=== PATIENT | female | born 1995 | race Caucasian/White ===

== ENCOUNTER 2018-12-21 16:13 | Inpatient (IN) | payer BC, SELFPAY ==
[2018-12-21 16:32] VITALS: BMI 44.3
[2018-12-21] MEDS: Lactated Ringers 1,000 ML 50 ML IV ×2 (16:55→23:10)
[2018-12-21] MEDS: 0.9% Normal Saline 100 ML IV.SOLN. INTRA-UTER (17:20)
--- NOTE | 2018-12-21 17:22 | HP.PCM_ITS ---
History Date of Admission: 12/21/18 Final ALLYSON: 12/15/18 Gestational age: 40 Weeks and 6 Days History of this : This is a 23 year-old, G [], P [], at 40 weeks gestational age. Allergies No Known Allergies Allergy (Verified 12/21/18 16:42) Home Medications: Home Medications Ergocalciferol [Vitamin D] 50,000 unit PO Q7D 12/21/18 Vits [Prenatabs FA] 1 tab PO DAILY 12/21/18 Smoking Status: Never smoker Alcohol: None Heart Tracin with mod variablity, accels TOCO Analysis: irregular History Past Pregnancies: Past Pregnancies Delivery Date Name GA/Weeks Outcome Route Weight Infant Gender Labor Length Anesthesia Delivery Location Provider FOB Labs: See [facility] H&P Physical Exam General: Alert, Oriented x3 Abdomen: Soft, Non Tender, Non-Distended, Gravid Extremities:: No tenderness/swelling Neurological: Cranial nerves II-XII grossly intact [employer]: Normal external genitalia Estimated gestational size: Appropriate for gestational size Presentation: Cephalic Cervix Dilation (cm): 1.5 Station: -3 Effacement (%): 80 Assessment/Plan This is a 23 year-old female at 41 weeks gestational age. Admit to L&D Induction - intracervical quintanilla placed. Plan to start pitocin. GBS negative. Pain - epidural as desired. EFW less than 4500g, patient with adequate pelvis. Routine care.
[2018-12-21 17:54] LABS: Hematocrit 41.5 % (37-47); Hemoglobin 13.5 g/dL (12.0-15.0); Mean Corp Hgb Conc 32.5 g/dL (32-36); Mean Corpuscular Hgb 29.6 pg (27.0-32.0); Mean Platelet Vol. 11.3 fl (6.2-12.0); Platelet Count 253 K/mm3 (150-450); RBC Distribution Width CV 14.4 % (11.6-14.6); RBC Distribution Width SD 47.8 fl (35.1-43.9); Red Blood Count 4.56 M/mm3 (4.2-5.4)
[2018-12-21] MEDS: miSOPROStol 25 MCG TABLET VAGINAL (18:34)
[2018-12-21] MEDS: Oxytocin 30 units/NS 500 ml 30 UNITS/500 ML IV.SOLN IV (22:40)
[2018-12-21] MEDS: fentaNYL-bupivacaine (epidural) 100 ML BAG EPIDURAL (23:38)
[2018-12-22] VITALS (13 sets, daily range): BP systolic 110–159; BP diastolic 40–90; PULSE 97–119; RESP 18–26; TEMP 36.3–37.6; O2SAT 98–100
[2018-12-22] MEDS: Lactated Ringers 1,000 ML 50 ML IV ×3 (02:16→11:47)
[2018-12-22] MEDS: Acetaminophen 325 MG Tablet PO ×2 (02:30→10:44)
[2018-12-22] MEDS: fentaNYL-bupivacaine (epidural) 100 ML BAG EPIDURAL ×3 (03:57→13:35)
--- NOTE | 2018-12-22 07:01 | PCM.PN.BLA ---
Progress Note S: Patient comfortable with epidural O: cvx - 8/90/-2 fhts 125 with mod variability, accels, early appearing decels tocos Q2-3 min A&P: continue pitocin
[2018-12-22] MEDS: Ondansetron 4 MG/2 ML Vial IV (11:47)
--- NOTE | 2018-12-22 13:21 | PCM.PN.BLA ---
Progress Note Patient seen at bedside. Patient is comfortable with epidural in place. Patient is pushing good maternal effort. Fetus feels like it is in the OP position. But noted. 0 station. We will continue to push at this time. We will try hands and knees to get the baby to rotate. Estimated weight was in the 86 percentile at last ultrasound. Approximately 8.5 pound estimation by clinical exam.
[2018-12-22] MEDS: CHLORHEXIDINE GLUC 2% CLOTH 1 EACH TOWELETTE TOPICAL (15:50)
[2018-12-22] MEDS: Sodium Citrate/Citric Acid 30 ML UDC PO (15:55)
--- NOTE | 2018-12-22 16:08 | PCM.PN.BLA ---
Progress Note She is seen at bedside. Examined. Vaginal exam patient is fully dilated 0 to +1 station with At noted. Has been pushing on and off for approximately 4 hours. Without good descent of the head. Fetus feels like it is in the OP position. Recommendation at this time for primary section. Patient was counseled on the risks of a section including but not limited to infection, bleeding, injury to pelvic structures including bladder, bowel, vessels. Patient was also instructed that we may need a assistance from push up from below to disengage the head. Patient wishes to proceed at this time. Our team was notified.
--- NOTE | 2018-12-22 17:48 | OP.PCM_ITS ---
Delivery Classification: HANNAH Final ALLYSON: 12/15/18 Gestational age: 41 Weeks and 0 Days Indications for : Arrrest of Descent Description of Procedure: After informed consent was obtained the patient was taken the operating room She was then placed in the supine position. She was prepped and draped in the normal sterile fashion. Anesthesia was found to be adequate. At this time a Pfannenstiel skin incision was made with a knife was carried down to the underlying layer of the fascia. The fascial incision was then extended laterally using curved Davis scissor. Tensions was then turned to the superior aspect of the fascial edge was grasped with 2 straight Matthew clamps tented up and the rectus muscle dissected off sharply using curved Davis scissor. Attention was then turned to the inferior aspect where again Iselin clamps were placed in the rectus muscles were tented up and the fascia was dissected off sharply using the curved Davis scissor. Rectus muscles were then in the midline bluntly and peritoneum was entered bluntly. Gentle opposing traction was placed. At this time the vesicouterine peritoneum was identified. Scalpel was used to make a uterine incision in a low transverse fashion. The uterus was then entered bluntly gentle opposing traction was placed to extend this incision. thick Meconium appreciated. 's head was disengaged with help from push-up from below. Once symptoms head was disengaged it was brought to uterine incision however started to rotate and traction was lost. At this time then decision was made to deliver the breech. The but was rotated down and delivered atraumatically followed by the rest of the 's body. Cord was clamped and cut infant was handed to the waiting nursery team. The Placenta was removed from the uterus. The uterus was then removed from the abdominal cavity. The uterus was cleared of all clots and debris using a lap. The waist of the uterine incision showed small bilateral extensions to the lower uterine segment. These were incorporated into the uterine incision as they were minimal. There is also a defect that wrapped around to the right side of the posterior aspect of the uterus. Bleeding was noted there. At this time the uterine incision was reapproximated using #1 Vicryl in a running locked fashion. By second layer for hemostasis using #1 Vicryl. At this time then the posterior uterus was evaluated bleeding was noted at this time multiple [id number] sutures were placed avoiding the uterine arteries. Uterus was placed back in the intra-abdominal cavity and bleeding was still appreciated to the uterus was removed. Assistance was called Dr. Joseph entered the operating room at this time. Agreed that bleeding was coming from the posterior aspect of the uterus running suture was placed good hemostasis was appreciated. There is no active bleeding at this time. Hemostasis was appreciated. Posterior cul-de-sac was then cleared of all clots and debris. Uterus was placed back in the abdominal cavity. Gutters were cleared of all clots and debris. Uterine incision was reevaluated and noted to be of good hemostasis. The extension on the right lower segment was evaluated good hemostasis there was mild oozing from sheering defect-fibrillar and Lesli was placed on that defect as well as on the uterine incision Lesli was placed.. At this time the peritoneum and muscle were grasped with Kellys reapproximated using #2 Vicryl suture in a running fashion. Fascia was then reapproximated using #1 Vicryl in a running fashion. Subcu layer was reapproximated with #2 0 plain gut suture in a running fashion. Subcu layer was closed using 4-0 vicryl on a Prosper needle in a subcu fashion. Dry sterile dressing was applied. Instrument lap needle count correct ?2. Anticipated normal postoperative course. Due to the defect that went from anterior to posterior on the uterus I do not recommend that the patient have a trial of labor for her next . I rec ommend a repeat section. Amniotic Membrane Rupture Type: Spontaneous Amniotic Fluid Description: Thick meconium Placenta Disposition: [facility] Drain: [place] to straight drain Fluids Replaced: 2400 Cord Entanglement: None Cord Vessel Description: 3 Vessels Esitmated Blood Loss (ml): 1200 Infant Gender: Male (1 minute): 6 (5 minute): 9 Delayed cord clamping: No Pre-op Antibiotic Given: - - Ancef 3 g Pt instructed on risks of surgery: Bleeding, Anesthesia Risks, Infection, Injury to surrounding structure(s) including bowel and bladder Complications: - - Hemorrhage due to bleeding from uterine defect, uterine atony. Received Methergine and tranexamic intraop - Admit VTE Documentation VTE Present on Admission: Yes VTE Mechan Device Prophylaxis: SCD's VTE Pharm Prophylaxis ordered?: Yes
[2018-12-22] MEDS: Methylergonovine 0.2 MG/ML Ampul IM (17:54)
[2018-12-22] MEDS: Oxytocin 30 units/NS 500 ml 30 UNITS/500 ML IV.SOLN 167 UNITS IV (18:45)
[2018-12-22] MEDS: Lactated Ringers 1,000 ML 100 ML IV (20:11)
[2018-12-22 21:44] LABS: Basophil# 0.04 X10^3/uL; Basophil% 0.2 % (0-1); Eosinophils% 0.4 % (0-5); Hematocrit 37.5 % (37-47); Hemoglobin 12.3 g/dL (12.0-15.0); Lymphocyte # 0.65 X10^3/ul (4.0); Lymphocyte % 2.7 % (19-41); Mean Corp Hgb Conc 32.8 g/dL (32-36); Mean Corpuscular Hgb 29.6 pg (27.0-32.0); Mean Corpuscular Volume 90.1 fL (81-99); Mean Platelet Vol. 11.7 fl (6.2-12.0); Monocyte# 1.89 X10^3/uL; Monocyte% 7.8 % (0-10); NRBC Flagged by Analyzer 0 % (0-5); Neutrophil # 21.41 X10^3/uL (2.7-7.7); Neutrophil % 88.2 % (47-70); POSITIVE DIFFERENTIAL YES; POSITIVE MORPHOLOGY YES; Platelet Count 239 K/mm3 (150-450); RBC Distribution Width CV 14.7 % (11.6-14.6); RBC Distribution Width SD 48.2 fl (35.1-43.9); Red Blood Count 4.16 M/mm3 (4.2-5.4); White Blood Count 24.3 K/mm3 (4.4-11.0)
[2018-12-22 21:47] LABS: Differential Indicated SCAN CRITERIA MET
[2018-12-22] MEDS: Acetaminophen 500 MG Tablet 1000 MG PO (21:49)
[2018-12-23] VITALS (11 sets, daily range): BP systolic 94–114; BP diastolic 50–70; PULSE 84–114; RESP 16–18; TEMP 36.2–36.9; O2SAT 97–100
[2018-12-23] MEDS: Cefazolin 2 GM in 0.9% Normal Saline 100 ML IV (00:05)
[2018-12-23] MEDS: Ketorolac 30 MG/ML Syringe IV ×4 (00:46→17:32)
[2018-12-23] MEDS: Enoxaparin 40 MG/0.4 ML Syringe SC (05:49)
[2018-12-23 05:59] LABS: Hematocrit 29.5 % (37-47); Hemoglobin 9.8 g/dL (12.0-15.0); Mean Corp Hgb Conc 33.2 g/dL (32-36); Mean Corpuscular Volume 90.2 fL (81-99); Mean Platelet Vol. 11.2 fl (6.2-12.0); Platelet Count 202 K/mm3 (150-450); RBC Distribution Width CV 14.8 % (11.6-14.6); RBC Distribution Width SD 48.6 fl (35.1-43.9); Red Blood Count 3.27 M/mm3 (4.2-5.4); White Blood Count 19.9 K/mm3 (4.4-11.0)
[2018-12-23] MEDS: Lactated Ringers 1,000 ML 100 ML IV (07:51)
--- NOTE | 2018-12-23 08:51 | PN.OBGYN_ITS ---
Subjective: Patient seen at bedside doing well. Patient reports good pain control. Patient denies any chest pain, shortness of breath, dizziness, palpitations. Patient reports mild lochia. Breast-feeding. - Physical Exam General: Alert, Oriented x3 Abdomen: Soft, Non-Distended, - - Fundus firm. Incision dressing dry and intact Extremities: No Calf Tenderness Vital Signs Temp Pulse Resp BP Pulse Ox 98.2 F 84 16 108/54 L 99 12/23/18 05:56 12/23/18 05:56 12/23/18 05:56 12/23/18 05:56 12/23/18 05:56 Oxygen Delivery Method Blow-by Weight: 110 kg Body Mass Index (BMI) 44.3 Intake and Output for Last 24 Hours 12/21/18 12/22/18 12/23/18 23:59 23:59 23:59 Intake Total 74448 / 89558 1500 / 1500 Output Total 1600 / 1600 800 / 800 Balance 9331 / 9331 700 / 700 Laboratory Tests Past 24 Hrs 12/21/18 12/22/18 12/23/18 16:55 18:45 05:40 WBC 24.3 H 19.9 H RBC 4.16 L 3.27 L Hgb 12.3 9.8 L Hct 37.5 29.5 L MCV 90.1 90.2 MCH 29.6 30.0 MCHC 32.8 33.2 RDW Std Deviation 48.2 H 48.6 H RDW Coeff of Mu 14.7 H 14.8 H Plt Count 239 202 MPV 11.7 11.2 Immature Gran % (Auto) 0.700 Neut % (Auto) 88.2 H Lymph % (Auto) 2.7 L Burke % (Auto) 7.8 Eos % (Auto) 0.4 Baso % (Auto) 0.2 Absolute Neuts (auto) Not Reportable Absolute Nucleated RBC 0.00 Nucleated RBC % 0 Differential Comment Crossmatch See Detail Medical Necessity - Tobacco Use Smoking Status: Never smoker Assessment/Plan Post op day #1 status post primary section for arrest of descent. Immediate hemorrhage approximately 1200 cc of blood loss. I reviewed personally with the patient that I do not feel she is a good candidate for her next . Recommended a repeat section for any further deliveries. Routine care Pain management DC [place] Ambulation Monitor vital signs Repeat CBC in a.m.
--- NOTE | 2018-12-23 09:10 | NURSING ---
Indwelling quintanilla catheter present. WNL.
[2018-12-23] MEDS: Acetaminophen 500 MG Tablet 1000 MG PO ×2 (09:14→17:31)
--- NOTE | 2018-12-23 09:23 | NURSING ---
Patient up and ambulated to chair with minimal assistance. Sitting up in chair. Tolerated well. Incentive spirometry encouraged. Denies further needs at this time. Family at bedside.
[2018-12-23] MEDS: 0.9% Saline Lock 10 ML Syringe IV (11:59)
--- NOTE | 2018-12-23 18:13 | NURSING ---
Patient reports that she was just up and moving.
[2018-12-24] MEDS: 0.9% Saline Lock 10 ML Syringe IV ×4 (00:28→18:06)
[2018-12-24] MEDS: Ketorolac 30 MG/ML Syringe IV ×4 (00:28→18:06)
[2018-12-24 02:00] VITALS: BP 111/62; PULSE 104; RESP 20; TEMP 35.8; O2SAT 98
[2018-12-24 05:15] LABS: Hematocrit 25.6 % (37-47); Hemoglobin 8.3 g/dL (12.0-15.0); Mean Corp Hgb Conc 32.4 g/dL (32-36); Mean Corpuscular Hgb 29.4 pg (27.0-32.0); Mean Corpuscular Volume 90.8 fL (81-99); Mean Platelet Vol. 10.4 fl (6.2-12.0); Platelet Count 183 K/mm3 (150-450); RBC Distribution Width CV 14.8 % (11.6-14.6); RBC Distribution Width SD 49.4 fl (35.1-43.9); Red Blood Count 2.82 M/mm3 (4.2-5.4); White Blood Count 17.5 K/mm3 (4.4-11.0)
[2018-12-24] MEDS: Enoxaparin 40 MG/0.4 ML Syringe SC (06:09)
--- NOTE | 2018-12-24 07:33 | DCINST_ITS ---
Discharge Diet: No Restrictions Discharge Activity: Return to Normal Activity, May Not Drive - for 2 weeks, May not drive while taking narcotic pain medications., May Shower, May Take a Tub Bath - in 7 days. May resume sexual activity in: 4-6 weeks Lifting Restrictions: 20 pounds Additional Activity Instructions:: Nothing in the vagina for 4-6 weeks. You may return to work/school in 6 weeks. Call your doctor if your incision/area has: Continuous Slow Oozing, Sudden Increased Bleeding, Increased Pain/ Swelling, Increased Redness, Foul Smelling Discharge Call your doctor if you observe: Fever of 101 or Higher, Using more than one pad per hour - for 2 hours Suture Line Care: Avoid Pulling/Pushing, Avoid Pinching/Bending Cleanse incision/area with: Keep Dressing Clean & Dry Additional Instructions: If you experience any of the following, contact your healthcare provider. * Bleeding that soaks a pad every hour for 2 hours * Fever 100.4 or higher * Unrelieved incision or abdominal pain * Swelling, redness, discharge or bleeding from your incision or episiotomy site * Your incision begins to separate * Problems urinating (including inability to urinate or burning while urinating). * Visual changes * Severe headache * Flu-like symptoms * Pain or redness in one of both of your breasts * Pain, warmth, tenderness or swelling in your legs, especially the calf area * Frequent nausea and vomiting * Symptoms of depression or anxiety If you experience any of the following, call 911 or go to the nearest Emergency Room. * Chest pain * Problems breathing * Seizure activity * Partial or complete paralysis of a body part, slurred speech, weakness or drooping of the face, or a sudden inability to walk or hold your balance Allergies/Adverse Reactions: Allergies No Known Allergies Allergy (Verified 12/21/18 16:42) Medications to take at Discharge Vits [Prenatabs FA ] 1 tab PO DAILY 12/21/18 Acetaminophen [Tylenol Extra Strength] 1,000 mg PO Q8 #40 tab 12/24/18 Ibuprofen [Motrin] 800 mg PO TID PRN PRN #60 tab 12/24/18 Oxycodone [Oxyir] 5 mg PO Q4H PRN PRN 7 Days #28 tablet 12/24/18 The following prescriptions were given: Ibuprofen [Motrin] 800 mg PO TID PRN PRN #60 tab PRN Reason: Pain [facility] Oxycodone [Oxyir] 5 mg PO Q4H PRN PRN 7 Days #28 tablet PRN Reason: Severe Pain (6-03/10) Transmission Status: [facility] by [facility] Acetaminophen [Tylenol Extra Strength] 1,000 mg PO Q8 #40 tab Transmission [facility] Follow-Up: Call to make an appointment with your doctor for an incision check in 1-2 weeks. You will also need a 6 week post- follow up appointment. Test results from this visit will be discussed in further detail at your follow- up appointment, if applicable. Please Follow Up With: Betsy Molina MD - Call to make an appointment for an incision check in 1-2 [phone] When: You will need a post check in 6 weeks. Primary Care Physician: David Bui MD [Primary Care Provider] -
--- NOTE | 2018-12-24 07:34 | DS.PCM_ITS ---
Discharge Date and Diagnosis Date of Admission: 12/21/18 Date of Discharge: 12/24/18 Hospital Course and Treatment Consultations 12/21/18 17:27 Consult: Anesthesia Routine Comment: Reason For Exam: LABOR Operations: - - Primary low transverse section via Pfannenstiel skin incision with an attention of the incision down the right cervix and a defect in the posterior uterine wall. Clinically would not recommend TOLAC Procedures: None Summary of Care Provided: The patient is a 23-year-old female who had a complete and pushing . The head was very engaged. There was a cervical extension on the right side with a significant amount of bleeding. She also had proximally a 2 cm defect in the left posterior wall of the uterus. These were oversewn. Patient tolerated her acute blood loss anemia which was appropriate for blood loss during the surgery very well. By postoperative day #2 she is ambulating, urinating tolerating regular diet and ready for discharge. She was given routine instructions and prescription she is to follow-up in our office in 1-2 in 6 weeks or as needed. Because of the extensive nature of her cervical lacerations, Dr. Garcia and Dr. Joseph clinically recommended that the patient is not a vaginal after candidate. [] - Physical Exam Vital Signs Temp Pulse Resp BP Pulse Ox 96.4 F L 104 H 20 H 111/62 98 12/24/18 02:00 12/24/18 02:00 12/24/18 02:00 12/24/18 02:00 12/24/18 02:00 Oxygen Delivery Method Room Air Weight: 110 kg Body Mass Index (BMI) 44.3 Intake and Output for Last 24 Hours 12/22/18 12/23/18 12/24/18 23:59 23:59 23:59 Intake Total 54539 / 39005 2775 / 2775 Output Total 1600 / 1600 3000 / 3000 Balance 9331 / 9331 -225 / -225 Laboratory Tests Past 24 Hrs 12/24/18 05:05 WBC 17.5 H RBC 2.82 L Hgb 8.3 L Hct 25.6 L MCV 90.8 MCH 29.4 MCHC 32.4 RDW Std Deviation 49.4 H RDW Coeff of Mu 14.8 H Plt Count 183 MPV 10.4 Discharge Diet: No Restrictions Discharge Activity: Return to Normal Activity, May Not Drive - for 2 weeks, May not drive while taking narcotic pain medications., May Shower, May Take a Tub Bath - in 7 days. May resume sexual activity in: 4-6 weeks Additional Activity Instructions:: Nothing in the vagina for 4-6 weeks. You may return to work/school in 6 weeks. Call your doctor if your incision/area has: Continuous Slow Oozing, Sudden Increased Bleeding, Increased Pain/ Swelling, Increased Redness, Foul Smelling Discharge Call your doctor if you observe: Fever of 101 or Higher, Using more than one pad per hour - for 2 hours Suture Line Care: Avoid Pulling/Pushing, Avoid Pinching/Bending Cleanse incision/area with: Keep Dressing Clean & Dry Home Medications: Medications to take at Discharge Vits [Prenatabs FA ] 1 tab PO DAILY 12/21/18 Acetaminophen [Tylenol Extra Strength] 1,000 mg PO Q8 #40 tab 12/24/18 Ibuprofen [Motrin] 800 mg PO TID PRN PRN #60 tab 12/24/18 Oxycodone [Oxyir] 5 mg PO Q4H PRN PRN 7 Days #28 tablet 12/24/18 Following Prescrptions Were Given to Patient: Ibuprofen [Motrin] 800 mg PO TID PRN PRN #60 tab PRN Reason: Pain Transmission Status: Pending to [facility] Oxycodone [Oxyir] 5 mg PO Q4H PRN PRN 7 Days #28 tablet PRN Reason: Severe Pain (6-10/10) Transmission Status: Received by [facility] Acetaminophen [Tylenol Extra Strength] 1,000 mg PO Q8 #40 tab Transmission Status: Pending to [facility] Primary Care Physician: David Bui MD [Primary Care Provider] - Please Follow Up With: Betsy Molina MD - Call to make an appointment for an incision check in 1-2 [phone] When: You will need a post check in 6 weeks. Medical Necessity - Tobacco Use Smoking Status: Never smoker Meaningful Use Info Meaningful Use Diagnoses (Choose all that apply): None applicable
--- NOTE | 2018-12-24 07:41 | PCM.PN.OB ---
Subjective: No complaints - Physical Exam General: Alert, Oriented x3 Abdomen: Soft, Non Tender, Non-Distended - ff mid & below umb; inc - bandage c/d/i Extremities: No Calf Tenderness Neurological: Cranial nerves II-XII grossly intact Vital Signs Temp Pulse Resp BP Pulse Ox 96.4 F L 104 H 20 H 111/62 98 12/24/18 02:00 12/24/18 02:00 12/24/18 02:00 12/24/18 02:00 12/24/18 02:00 Oxygen Delivery Method Room Air Weight: 242 lb 8.136 oz Body Mass Index (BMI) 44.3 Intake and Output for Last 24 Hours 12/22/18 12/23/18 12/24/18 23:59 23:59 23:59 Intake Total 36357 / 64281 2775 / 2775 Output Total 1600 / 1600 3000 / 3000 Balance 9331 / 9331 -225 / -225 Laboratory Tests Past 24 Hrs 12/24/18 05:05 WBC 17.5 H RBC 2.82 L Hgb 8.3 L Hct 25.6 L MCV 90.8 MCH 29.4 MCHC 32.4 RDW Std Deviation 49.4 H RDW Coeff of Mu 14.8 H Plt Count 183 MPV 10.4 Medical Necessity - Tobacco Use Smoking Status: Never smoker Assessment/Plan POD #2 Heme - anemia - will d/c home on iron. Attribute mild tachycardia to anemia. D/c home later today.
[2018-12-24 08:43] VITALS: BP 106/62; PULSE 106; RESP 16; TEMP 36.4; O2SAT 100
[2018-12-24] MEDS: Acetaminophen 500 MG Tablet 1000 MG PO (09:08)
[2018-12-24 13:54] VITALS: BP 117/77; PULSE 99; RESP 18; TEMP 36.6; O2SAT 98
--- NOTE | 2018-12-24 14:14 | NURSING ---
Lanolin and gel pads given.
[2018-12-24] MEDS: Senna/Docusate Sodium 1 Tablet PO (18:05)
[2018-12-24 19:45] VITALS: BP 118/66; PULSE 109; RESP 18; TEMP 36.6; O2SAT 100
[2018-12-25] MEDS: Ibuprofen 600 MG Tablet PO ×3 (01:29→14:21)
[2018-12-25 01:30] VITALS: BP 117/72; PULSE 107; RESP 18; TEMP 37.1
[2018-12-25] MEDS: Acetaminophen 500 MG Tablet 1000 MG PO (04:49)
[2018-12-25] MEDS: Enoxaparin 40 MG/0.4 ML Syringe SC (06:07)
[2018-12-25 07:45] VITALS: BP 127/76; PULSE 91; RESP 18; TEMP 36; O2SAT 98
--- NOTE | 2018-12-25 08:55 | PCM.PN.OB ---
Subjective: No complaints - Physical Exam General: Alert, Oriented x3 Abdomen: Soft, Non Tender, Non-Distended - ff mid & below umb; bandage - c/d/i Extremities: No Calf Tenderness Neurological: Cranial nerves II-XII grossly intact Vital Signs Temp Pulse Resp BP Pulse Ox 96.8 F L 91 18 127/76 H 98 12/25/18 07:45 12/25/18 07:45 12/25/18 07:45 12/25/18 07:45 12/25/18 07:45 Oxygen Delivery Method Room Air Weight: 242 lb 8.136 oz Body Mass Index (BMI) 44.3 Intake and Output for Last 24 Hours 12/23/18 12/24/18 12/25/18 23:59 23:59 23:59 Intake Total 2775 / 2775 700 / 700 Output Total 3000 / 3000 Balance -225 / -225 700 / 700 Medical Necessity - Tobacco Use Smoking Status: Never smoker Assessment/Plan POD#3 Anemia - continue iron D/c home
--- NOTE | 2018-12-25 08:57 | PCM.DC.SUM ---
Discharge Date and Diagnosis Date of Admission: 12/21/18 Date of Discharge: 12/25/18 Hospital Course and Treatment Consultations 12/21/18 17:27 Consult: Anesthesia Routine Comment: Reason For Exam: LABOR Operations: - - Primary low transverse section via Pfannenstiel skin incision with an attention of the incision down the right cervix and a defect in the posterior uterine wall. Clinically would not recommend TOLAC Summary of Care Provided: The patient is a 23 year old female admitted @ 40&6 for induction of labor. She proceeded to have a - please see operative note. Post-operative course (1) Anemia - acute blood loss anemia) - started on iron (2) - Physical Exam Vital Signs Temp Pulse Resp BP Pulse Ox 96.8 F L 91 18 127/76 H 98 12/25/18 07:45 12/25/18 07:45 12/25/18 07:45 12/25/18 07:45 12/25/18 07:45 Oxygen Delivery Method Room Air Weight: 242 lb 8.136 oz Body Mass Index (BMI) 44.3 Intake and Output for Last 24 Hours 12/23/18 12/24/18 12/25/18 23:59 23:59 23:59 Intake Total 2775 / 2775 700 / 700 Output Total 3000 / 3000 Balance -225 / -225 700 / 700 Discharge Diet: No Restrictions Discharge Activity: Return to Normal Activity, May Not Drive - for 2 weeks, May not drive while taking narcotic pain medications., May Shower, May Take a Tub Bath - in 7 days. May resume sexual activity in: 4-6 weeks Additional Activity Instructions:: Nothing in the vagina for 4-6 weeks. You may return to work/school in 6 weeks. Call your doctor if your incision/area has: Continuous Slow Oozing, Sudden Increased Bleeding, Increased Pain/ Swelling, Increased Redness, Foul Smelling Discharge Call your doctor if you observe: Fever of 101 or Higher, Using more than one pad per hour - for 2 hours Suture Line Care: Avoid Pulling/Pushing, Avoid Pinching/Bending Cleanse incision/area with: Keep Dressing Clean & Dry Home Medications: Medications to take at Discharge Vits [Prenatabs FA ] 1 tab PO DAILY 12/21/18 Acetaminophen [Tylenol Extra Strength] 1,000 mg PO Q8 #40 tab 12/24/18 Ferrous Sulfate 325 mg PO DAILY #30 tab 12/24/18 Ibuprofen [Motrin] 800 mg PO TID PRN PRN #60 tab 12/24/18 Oxycodone [Oxyir] 5 mg PO Q4H PRN PRN 7 Days #28 tab 12/24/18 Following Prescrptions Were Given to Patient: Ferrous Sulfate 325 mg PO DAILY #30 tab Transmission Status: Received by [facility] Ibuprofen [Motrin] 800 mg PO TID PRN PRN #60 tab PRN Reason: Pain Transmission Status: Received by [facility] Oxycodone [Oxyir] 5 mg PO Q4H PRN PRN 7 Days #28 tab PRN Reason: Severe Pain (6-03/10) Transmission Status: Received by [facility] Acetaminophen [Tylenol Extra Strength] 1,000 mg PO Q8 #40 tab Transmission Status: Received by [facility] Primary Care Physician: David Bui MD [Primary Care Provider] - Please Follow Up With: Betsy Molina MD - Call to make an appointment for an incision check in 1-2 [phone] When: You will need a post check in 6 weeks. Medical Necessity - Tobacco Use Smoking Status: Never smoker Meaningful Use Info Meaningful Use Diagnoses (Choose all that apply): None applicable
[2018-12-25 14:00] VITALS: BP 122/78; PULSE 85; RESP 16; TEMP 36.9; O2SAT 100
[2018-12-25] MEDS: Senna/Docusate Sodium 1 Tablet PO (15:01)
[2018-12-25 18:45] VITALS: BP 132/76; PULSE 86; RESP 16; TEMP 36.5; O2SAT 100
--- NOTE | 2018-12-29 16:41 | NURSING ---
No answer on follow up phone call left voicemail
[2019-01-11 13:39] LABS: Pathologist Review Reviewed
== END 2018-12-25 20:45 | disposition home or self-care (01) | DRG 787 ==
PROVIDERS: Obstetrics & Gynecology; Admitting Provider Obstetrics & Gynecology; Family Provider Family Medicine; PCP Family Medicine; Referring Provider Obstetrics & Gynecology; Visit Provider Obstetrics & Gynecology
DX: O76 Abnormality in fetal heart rate and rhythm complicating labor and delivery (principal); O72.1 Other immediate postpartum hemorrhage; D62 Acute posthemorrhagic anemia; O90.81 Anemia of the puerperium; O62.1 Secondary uterine inertia; O32.8XX0 Maternal care for other malpresentation of fetus, not applicable or unspecified; O48.0 Post-term pregnancy; O77.0 Labor and delivery complicated by meconium in amniotic fluid; Z3A.41 41 weeks gestation of pregnancy; Z37.0 Single live birth
CPT/HCPCS: 59025; 59050; 85025; 85027; 86850; 86900; 86920; 99218; J7120; A4216; G0378; J2405

== ENCOUNTER 2018-12-30 17:14 | Inpatient (IN) | payer BC, SELFPAY ==
[2018-12-30] VITALS (28 sets, daily range): BP systolic 122–173; BP diastolic 58–87; PULSE 60–85; RESP 14–20; TEMP 36.9–38.6; O2SAT 97–99; BMI 44.9
[2018-12-30] MEDS: Lactated Ringers 1,000 ML 15 ML IV (17:37)
--- NOTE | 2018-12-30 17:56 | RAD_ITS ---
STUDY: X-RAY CHEST REASON FOR EXAM: Female, 23 years old. Post delivery. Abnormal physical exam of the lungs. TECHNIQUE: Frontal and lateral views of the chest. COMPARISON: None. FINDINGS: Moderate lung volumes. There appears to be mild atelectasis and trace effusions in both posterior lung carlos. No other abnormalities are seen. Normal size heart. Normal mediastinum and juan a. Normal visualized pulmonary arteries. Normal visualized aortic arch and descending thoracic aorta. Normal visualized thoracic spine. Normal visualized ribs, clavicles, and shoulders. There is no demonstrated abnormality of the visualized soft tissue structures of the upper abdomen. RAD/Chest PA and Lateral IMPRESSION: Mild atelectasis and trace effusions in both posterior lung carlos. Electronically Signed: Venkat Ann MD at 19:25 EDT , Service support ,
--- NOTE | 2018-12-30 17:57 | ECHOD_ITS ---
Reason For Study: Course Crackles Posterior Lungs Procedure This was a 2D Doppler, Color Flow transthoracic echocardiogram. The exam was of adequate technical quality. Exam performed portable in patient room. Left Ventricle Normal LV size. Left ventricular systolic function is normal. The estimated ejection fraction is 65 %. No evidence for diastolic dysfunction. No regional wall motion abnormalities noted. Right Ventricle Normal RV size. Normal systolic function. Atria Normal left atrium. Normal right atrium. No doppler evidence for ASD. Mitral Valve There is no mitral annular calcification. Normal mitral valve. Mild (1+) mitral valve insufficiency. Tricuspid Valve Normal tricuspid valve. Mild tricuspid valve insufficiency. Right ventricular systolic pressure estimated to be 38 mmHg. Aortic Valve Trisinus/trileaflet aortic valve. Normal aortic valve. Pulmonic Valve The pulmonic valve is not well visualized. Trivial pulmonic valve insufficiency. Great Vessels Normal sized aortic root. Pericardium/Pleural No pericardial effusion. MMode/2D Measurements & Calculations LVIDd: 4.9 cm IVSd: 1.1 cm Ao root diam: 2.3 cm LVIDs: 3.1 cm LVPWd: 1.0 cm RVDd: 4.2 cm FS: 36.9 % LAV(MOD-bp): 60.4 ml LVAd ap4: 32.9 cm2 SV(MOD-sp4): 64.5 ml LAV(MOD-bp) Indexed: 29.8 ml/m2 EDV(MOD-sp4): 107.4 ml LAV(MOD-sp2): 56.9 ml EDV(sp4-el): 110.8 ml LAV(MOD-sp4): 61.7 ml LVAs ap4: 18.4 cm2 ESV(MOD-sp4): 42.9 ml ESV(sp4-el): 43.4 ml EF(MOD-sp4): 60.0 % EF(sp4-el): 60.8 % SV(sp4-el): 67.4 ml LA A4 area: 21.1 cm2 LA dimension(2D): 4.4 cm RA A4 area: 16.0 cm2 Doppler Measurements & Calculations MV E max ludwin: 125.3 cm/sec Lat Peak E' Ludwin: 13.0 cm/sec Med Peak E' Ludwin: 10.3 cm/sec MV A max ludwin: 95.1 cm/sec E/E' lat: 9.7 E/E' med: 12.2 MV E/A: 1.3 Ao V2 max: 183.8 cm/sec LV V1 max: 146.1 cm/sec PA V2 max: 126.8 cm/sec Ao max P.5 mmHg LV V1 max P.5 mmHg Ao V2 mean: 119.2 cm/sec Ao mean P.6 mmHg Ao V2 VTI: 38.5 cm PI end-d ludwin: 147.5 cm/sec TR max ludwin: 296.0 cm/sec TR max P.1 mmHg Interpretation Summary Left ventricular systolic function is normal. The estimated ejection fraction is 65 %. Mild (1+) mitral valve insufficiency. Mild tricuspid valve insufficiency. Trivial pulmonic valve insufficiency. Right ventricular systolic pressure estimated to be 38 mmHg. No evidence for diastolic dysfunction. Ordering Physician: Betsy Molina Referring Physician: David Bui Performed By: Sunita Boles, MICHAEL, RVT
[2018-12-30 18:09] LABS: Absolute Lymphocyte Count 1.59 X10^3/uL (0.83-4.51); Absolute Neutrophil Count 8.5 X10^3/uL (2.0-7.7); Basophil# 0.02 X10^3/uL; Basophil% 0.2 % (0-1); Eosinophil# 0.13 X10^3/uL; Eosinophils% 1.2 % (0-5); Hematocrit 27.9 % (37-47); Hemoglobin 8.8 g/dL (12.0-15.0); Lymphocyte # 1.59 X10^3/ul (4.0); Lymphocyte % 14.2 % (19-41); Mean Corp Hgb Conc 31.5 g/dL (32-36); Mean Corpuscular Hgb 28.9 pg (27.0-32.0); Mean Corpuscular Volume 91.8 fL (81-99); Mean Platelet Vol. 9.6 fl (6.2-12.0); Monocyte# 0.78 X10^3/uL; NRBC Flagged by Analyzer 0 % (0-5); Neutrophil # 8.45 X10^3/uL (2.7-7.7); Neutrophil % 75.7 % (47-70); Platelet Count 435 K/mm3 (150-450); RBC Distribution Width CV 14.4 % (11.6-14.6); RBC Distribution Width SD 48.1 fl (35.1-43.9); Red Blood Count 3.04 M/mm3 (4.2-5.4); White Blood Count 11.2 K/mm3 (4.4-11.0)
[2018-12-30 18:19] LABS: AST(SGOT) 16 U/L (15-37); Alanine Aminotransfer ALT/SGPT 49 U/L (13-56); Creatinine, Serum 0.72 mg/dL (0.55-1.02); EST Glomerular Filtration Rate 105 mL/min (>60); Est Glom Filt Rate - Afr Amer 127 mL/min (>60); Estimated Creatinine Clearance 94.47 ml/min; Uric Acid 5.6 mg/dL (2.6-6.0)
[2018-12-30 18:20] LABS: Prothrombin Time (Protime)PT. 12.5 SECONDS (11.7-14.9)
[2018-12-30 18:21] LABS: Partial Thromboplast Time 22.6 Seconds (24.1-36.2)
--- NOTE | 2018-12-30 18:45 | EKG12_ITS ---
Test Reason : SOB Blood Pressure : / mmHG Vent. Rate : 058 BPM Atrial Rate : 058 BPM P-R Int : 134 ms QRS Dur : 086 ms QT Int : 398 ms P-R-T Axes : -03 069 055 degrees QTc Int : 390 ms Sinus bradycardia Otherwise normal ECG No previous ECGs available Confirmed by KATE TRINIDAD ([id number]), graphics editor RANDY ARTEAGA ([id number] on 01/05/2019 3:44:36 PM Referred By: Betsy Molina Confirmed By:KATE TRINIDAD
[2018-12-30] MEDS: Acetaminophen 500 MG Tablet 1000 MG PO (19:56)
--- NOTE | 2018-12-30 20:41 | HP.PCM_ITS ---
Problem List (1) Preeclampsia in period Status: Acute (2) fever Status: Acute (3) Atelectasis Status: Acute History and Physical Date of Admission: 12/30/18 Patient is status post primary from 12/22/2018. She presented to my office today complaining of occipital headache and swelling. On exam in the office the patient had +3 bilateral deep tendon reflexes of the lower ex tremities, +2 pitting edema of the lower extremities, occipital headache. No right upper quadrant pain, no epigastric pain, no blurry vision. Blood pressure in the office was 166/99 as a true BP. She was sent to [facility] labor and delivery for admission, preeclamptic work-up, magnesium sulfate. When patient arrived at [facility] her temperature was noted to be 101 Fahrenheit with crackles in her lungs. Decision at this time was for blood cultures, chest x-ray, EKG, echo. Blood pressures on admission were ranging 130s to 140s over 80s to 90s. However recently started trending to 160s 170s over 90s to 100s. Hypertensive protocol was initiated. Spirometer started Physical exam General. White female in no apparent distress Lungs: Crackles at the lower bases Abdomen: Soft, nondistended, incision dry and intact. No right upper quadrant or epigastric pain Extremities: +2 pitting edema, +3 reflexes a/p: 23-year-old postop day 7 after primary section fully dilated presents with preeclampsia, occipital headache, fever PRE Eclamptic work up CBC with DIFF fluid restrictions Strick I&O Magnesium sulfate Incentive spirometer CXR EKG ECHO HTN protocol Monitor VS continous Pulse OX
[2018-12-30] MEDS: Magnesium Sulfate 20 GM/500 ML BAG IV (20:47)
[2018-12-30 20:58] LABS: Bacteria 0 SEEN /hpf (None Seen); Mucous, Urine 0 SEEN /hpf (<or=2+); Red Blood Cells-Urine 0 SEEN /hpf (0-5); Squamous Epithelial Cells - UA 0 SEEN /hpf (5-10); White Blood Cells 0 SEEN /hpf (0-5)
[2018-12-30 21:27] LABS: Color, Urine Yellow (Yellow); Glucose, Dipstick Normal (Normal); Ketone-Dipstick Negative (Negative); Leukocyte Esterase-Dipstick Negative /ul (Negative); Nitrite-Dipstick Negative (Negative); Occult Blood-Urine Negative /ul (Negative); Protein-Dipstick Negative (Negative); Urine Bilirubin Dipstick Negative (Negative); Urine Clarity Clear (Clear); Urine Urobilinogen Normal (Normal); Urine pH 6.5 (5.0 - 8.0)
[2018-12-30 21:31] LABS: Protein, Urine (Random) 6.6 mg/dL (<11.9); Protein:Creat Ratio 152 mg/g CRE (0-200)
[2018-12-30] MEDS: Labetalol 100 MG Tablet PO (22:54)
[2018-12-31] VITALS (23 sets, daily range): BP systolic 122–144; BP diastolic 64–99; PULSE 78–106; RESP 16–20; TEMP 36.6–38.3; O2SAT 95–100
[2018-12-31] MEDS: Ibuprofen 600 MG Tablet PO (03:03)
[2018-12-31] MEDS: Acetaminophen 500 MG Tablet 1000 MG PO (03:43)
[2018-12-31] MEDS: Magnesium Sulfate 20 GM/500 ML BAG IV ×2 (07:18→18:32)
--- NOTE | 2018-12-31 08:38 | PN.OBGYN_ITS ---
Patient Problems: Active and Suspected Problems (Last Updated 12/21/18 @ 17:23 by Susan Galeano) Preeclampsia in period (Acute) fever (Acute) Atelectasis (Acute) Subjective: Denies complaints. - Physical Exam General: Alert, Oriented x3 Abdomen: Soft, Non Tender, Non-Distended Extremities: No Calf Tenderness, Edema Vital Signs Temp Pulse Resp BP Pulse Ox 99.5 F H 83 18 131/71 H 96 12/31/18 07:35 12/31/18 07:35 12/31/18 07:35 12/31/18 07:35 12/31/18 07:35 Oxygen Delivery Method Room Air Weight: 245 lb 5.992 oz Body Mass Index (BMI) 44.9 Intake and Output for Last 24 Hours 12/29/18 12/30/18 12/31/18 23:59 23:59 23:59 Intake Total 1676 / 1676 886 / 886 Output Total 1120 / 1120 1440 / 1440 Balance 556 / 556 -554 / -554 Laboratory Tests Past 24 Hrs 12/30/18 12/30/18 12/30/18 17:40 17:40 17:40 WBC 11.2 H RBC 3.04 L Hgb 8.8 L Hct 27.9 L MCV 91.8 MCH 28.9 MCHC 31.5 L RDW Std Deviation 48.1 H RDW Coeff of Mu 14.4 Plt Count 435 MPV 9.6 Immature Gran % (Auto) 1.700 H Neut % (Auto) 75.7 H Lymph % (Auto) 14.2 L [place] % (Auto) 7.0 Eos % (Auto) 1.2 Baso % (Auto) 0.2 Absolute Neuts (auto) 8.5 H Absolute Lymphs (auto) 1.59 Nucleated RBC % 0 PT 12.5 INR 1.0 APTT 22.6 L Creatinine 0.72 Estim Creat Clear Calc 94.47 Est GFR (MDRD) Af Amer 127 Est GFR (MDRD) Non-Af 105 Uric Acid 5.6 AST 16 ALT 49 Urine Color Urine Clarity Urine pH Ur Specific [place] Urine Protein Urine Glucose (UA) Urine Ketones Urine Occult Blood Urine Nitrite Urine Bilirubin Urine Urobilinogen Ur Leukocyte Esterase Urine RBC Urine WBC Ur Squamous Epith Cells Urine Bacteria Urine Mucus U Random Total Protein Urine Creatinine Protein/Creatinin Ratio 12/30/18 12/30/18 20:45 20:45 WBC RBC Hgb Hct MCV MCH MCHC RDW Std Deviation RDW Coeff of Mu Plt Count MPV Immature Gran % (Auto) Neut % (Auto) Lymph % (Auto) [place] % (Auto) Eos % (Auto) Baso % (Auto) Absolute Neuts (auto) Absolute Lymphs (auto) Nucleated RBC % PT INR APTT Creatinine Estim Creat Clear Calc Est GFR (MDRD) Af Amer Est GFR (MDRD) Non-Af Uric Acid AST ALT Urine Color Yellow Urine Clarity Clear Urine pH 6.5 Ur Specific [place] 1.010 Urine Protein Negative Urine Glucose (UA) Normal Urine Ketones Negative Urine Occult Blood Negative Urine Nitrite Negative Urine Bilirubin Negative Urine Urobilinogen Normal Ur Leukocyte Esterase Negative Urine RBC 0 SEEN Urine WBC 0 SEEN Ur Squamous Epith Cells 0 SEEN Urine Bacteria 0 SEEN Urine Mucus 0 SEEN U Random Total Protein 6.6 Urine Creatinine 43.40 Protein/Creatinin Ratio 152 Medical Necessity - Tobacco Use Smoking Status: Never smoker Assessment/Plan All Active Problems (Last Updated 12/21/18 @ 17:23 by Susan Galeano) Preeclampsia in period (Acute) fever (Acute) Atelectasis (Acute) HD#2 with PP preeclampsia PreE - continue magnesium for 24 hours, on labetalol GI - light diet while on magnesium ID - AF at this time, cultures pending CV - getting echo now Routine care
[2018-12-31] MEDS: Labetalol 100 MG Tablet PO ×2 (09:35→22:05)
--- NOTE | 2018-12-31 20:46 | NURSING ---
2035 Mag sulfate discontinued and IV to saline lock
--- NOTE | 2018-12-31 20:53 | NURSING ---
Catheter removed, pt tolerated well.
--- NOTE | 2018-12-31 22:10 | NURSING ---
Patient up to bathroom with minimal assist from this RN and significant other. Patient c/o legs being somewhat weak, but denies need for wheelchair. Pt tolerated activity well.
[2019-01-01] VITALS (7 sets, daily range): BP systolic 129–141; BP diastolic 72–84; PULSE 78–90; RESP 16–18; TEMP 36.8–37.2; O2SAT 97
--- NOTE | 2019-01-01 08:32 | DCINST_ITS ---
Discharge Diet: No Restrictions Discharge Activity: May not drive while taking narcotic pain medications., May Shower May resume sexual activity in: 6 weeks Weight Bearing Status: Weight bearing as tolerated Call your doctor if your incision/area has: Continuous Slow Oozing, Sudden Increased Bleeding, Increased Pain/ Swelling, Increased Redness, Foul Smelling Discharge, Swelling at the incision site Additional Instructions: If you experience any of the following, contact your healthcare provider. * Bleeding that soaks a pad every hour for 2 hours * Fever 100.4 or higher * Unrelieved incision or abdominal pain * Swelling, redness, discharge or bleeding from your incision or episiotomy site * Your incision begins to separate * Problems urinating (including inability to urinate or burning while urinating). * Visual changes * Severe headache * Flu-like symptoms * Pain or redness in one of both of your breasts * Pain, warmth, tenderness or swelling in your legs, especially the calf area * Frequent nausea and vomiting * Symptoms of depression or anxiety If you experience any of the following, call 911 or go to the nearest Emergency Room. * Chest pain * Problems breathing * Seizure activity * Partial or complete paralysis of a body part, slurred speech, weakness or drooping of the face, or a sudden inability to walk or hold your balance Allergies/Adverse Reactions: Allergies No Known Allergies Allergy (Verified 12/30/18 17:25) Medications to take at Discharge Vits [Prenatabs FA ] 1 tab PO DAILY 12/21/18 Acetaminophen [Tylenol] 1,000 mg PO Q8 #40 tab 12/24/18 Ferrous Sulfate 325 mg PO DAILY #30 tab 12/24/18 Ibuprofen [Motrin] 800 mg PO TID PRN PRN #60 tab 12/24/18 Docusate Sodium [Colace] 100 mg PO DAILY 12/30/18 Labetalol [Trandate (Beta Flakita)] 200 mg PO BID #120 tab 01/01/19 The following prescriptions were given: Labetalol [Trandate (Beta Flakita)] 200 mg PO BID #120 tab Prescription Printed Follow-Up: Call to make an appointment with your doctor for an incision check in 1-2 weeks. You will also need a 6 week post- follow up appointment. Test results from this visit will be discussed in further detail at your follow- up appointment, if applicable. Primary Care Physician: David Bui MD [Primary Care Provider] -
--- NOTE | 2019-01-01 08:34 | PCM.PN.OB ---
Patient Problems: Active and Suspected Problems (Last Updated 12/21/18 @ 17:23 by Susan Galeano) Preeclampsia in period (Acute) fever (Acute) Atelectasis (Acute) Subjective: Patient feels well. Denies headache, blurry vision, CP or SOB. - Physical Exam General: Alert, Oriented x3 Abdomen: Soft, Non Tender, Non-Distended - incision - well healed Extremities: No Calf Tenderness, Edema - 2+ Vital Signs Temp Pulse Resp BP Pulse Ox 99 F 78 16 137/81 H 97 01/01/19 05:57 01/01/19 05:57 01/01/19 05:57 01/01/19 05:57 12/31/18 20:43 Oxygen Delivery Method Room Air Weight: 245 lb 5.992 oz Body Mass Index (BMI) 44.9 Intake and Output for Last 24 Hours 12/30/18 12/31/18 01/01/19 23:59 23:59 23:59 Intake Total 1676 / 1676 2840 / 2840 Output Total 1120 / 1120 4125 / 4125 Balance 556 / 556 -1285 / -1285 Medical Necessity - Tobacco Use Smoking Status: Never smoker Assessment/Plan All Active Problems (Last Updated 12/21/18 @ 17:23 by Susan Galeano) Preeclampsia in period (Acute) fever (Acute) Atelectasis (Acute) HD#3 with PP preeclampsia Preeclampsia - s/p 24 hours magnesium sulfate. On labetalol & will increase to 200mg bid as some BP's on higher end of normal. ID - AF & no signs infection. Cultures pending. CV - no symptoms. Echo results reviewed. Plan for discharge home later today.
[2019-01-01] MEDS: Labetalol 100 MG Tablet 200 MG PO (10:00)
== END 2019-01-01 17:40 | disposition home or self-care (01) | DRG 776 ==
LOC: WPOUT 12-31 12:07 → WP 12-31 12:07
PROVIDERS: Admitting Provider Obstetrics & Gynecology; Family Provider Family Medicine; PCP Family Medicine; Referring Provider Obstetrics & Gynecology; Visit Provider Obstetrics & Gynecology
DX: O14.95 Unspecified pre-eclampsia, complicating the puerperium (principal); J98.11 Atelectasis; O99.53 Diseases of the respiratory system complicating the puerperium; O86.4 Pyrexia of unknown origin following delivery
CPT/HCPCS: 36415; 71046; 81001; 82565; 82570; 84156; 84450; 84460; 84550; 85025; 85610; 85730; 87040; 87086; 93005; 93306; 94760; 99218; J7120; G0378

== ENCOUNTER → 2019-01-06 11:32 | Outpatient (CLI) | payer BC, SELFPAY ==
[2014-01-09 16:03] VITALS: BMI 31.3
[2019-01-06 11:51] LABS: Absolute Lymphocyte Count 1.64 X10^3/uL (0.83-4.51); Absolute Neutrophil Count 7.5 X10^3/uL (2.0-7.7); Basophil# 0.02 X10^3/uL; Basophil% 0.2 % (0-1); Eosinophil# 0.09 X10^3/uL; Eosinophils% 0.9 % (0-5); Hematocrit 32.3 % (37-47); Hemoglobin 10.4 g/dL (12.0-15.0); Lymphocyte # 1.64 X10^3/ul (4.0); Lymphocyte % 16.6 % (19-41); Mean Corp Hgb Conc 32.2 g/dL (32-36); Mean Corpuscular Hgb 29.1 pg (27.0-32.0); Mean Corpuscular Volume 90.2 fL (81-99); Monocyte# 0.64 X10^3/uL; Monocyte% 6.5 % (0-10); NRBC Flagged by Analyzer 0 % (0-5); Neutrophil # 7.46 X10^3/uL (2.7-7.7); Neutrophil % 75.4 % (47-70); Platelet Count 594 K/mm3 (150-450); RBC Distribution Width CV 14.3 % (11.6-14.6); RBC Distribution Width SD 47.1 fl (35.1-43.9); Red Blood Count 3.58 M/mm3 (4.2-5.4); White Blood Count 9.9 K/mm3 (4.4-11.0)
[2019-01-06 12:07] LABS: AST(SGOT) 11 U/L (15-37); Alanine Aminotransfer ALT/SGPT 20 U/L (13-56); Albumin, Serum 3.2 g/dL (3.2-5.0); Alkaline Phosphatase 179 U/L (45-117); Anion Gap 9 (5-15); BUN 11 mg/dL (7-18); BUN/Creat Ratio 13.3 RATIO (10-20); Bilirubin, Direct 0.11 mg/dL (0.00-0.30); Calcium,Total 8.9 mg/dL (8.5-10.1); Chloride 110 mmol/L (98-107); Creatinine, Serum 0.82 mg/dL (0.55-1.02); EST Glomerular Filtration Rate 90 mL/min (>60); Est Glom Filt Rate - Afr Amer 108 mL/min (>60); Globulin 4.1 g/dL (2.2-4.2); Glucose 78 mg/dL (74-106); Potassium 4.2 mmol/L (3.5-5.1); Protein, Total 7.3 g/dL (6.4-8.2); Sodium Level 142 mmol/L (136-145)
== END ==
PROVIDERS: Family Provider Family Medicine; PCP Family Medicine; Referring Provider Obstetrics & Gynecology; Visit Provider Obstetrics & Gynecology
DX: R10.11 Right upper quadrant pain (principal)
CPT/HCPCS: 36415; 80048; 80076; 85025

== ENCOUNTER → 2022-02-25 | Outpatient (CLI) | payer BC, SELFPAY ==
--- NOTE | 2022-02-25 12:00 | RAD_ITS ---
STUDY: HYSTEROSALPINGOGRAM REASON FOR EXAM: Female, 26 years old. INFERTILITY FLUOROSCOPY TIME (if supplied): ( 45 second ) minutes/seconds. 2 images were obtained. TECHNIQUE: A hysterosalpingogram was performed by the condenser tester. Imaging was submitted. COMPARISON: None. FINDINGS: The uterus is unremarkable. Both fallopian tubes are patent with spill. RAD/Salpingogram IMPRESSION: Unremarkable hysterosalpingogram. Electronically Signed: Vernon Villarreal MD at 12:49 EDT ,
== END | disposition home or self-care (01) ==
PROVIDERS: PCP Family Medicine; Referring Provider Obstetrics & Gynecology; Visit Provider Obstetrics & Gynecology
DX: N97.9 Female infertility, unspecified (principal)
CPT/HCPCS: 58340; 74740; Q9967